=== PATIENT | male | born 1980 | race Caucasian/White ===

== ENCOUNTER 2024-06-13 10:19 | Outpatient (AMB) | payer OTHER, SELFPAY ==
--- NOTE | 2024-06-13 10:24 | A.OFFPC_ITS ---
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 // Est Care Intake Note: patient here for new patient visit Digital Media Coordinator Required: No Allergies No Known Allergies Allergy (Verified 06/13/24 10:27) Tobacco use date assessed: 06/13/24 Dental Screening Dental Screen Date: 06/13/24 Did you have a dental visit in the last 12 months?: Yes Did you have a dental problem in the last 6 months where you did not have access to dental care?: No Was dental information given to patient?: Patient has dentist HPI HPI Comments History of Present Illness Details This is a 43-year-old male with a past medical history of elevated blood pressure, anxiety, gout, impaired fasting glucose, OCD and diarrhea presenting for follow up. He transferred from my practice at [facility]. OCD, anxiety-stable. He takes Xanax 0.5 mg daily occasionally for symptoms. He needs a refill. The patient requests a letter to continue working from home. He has worked from home since the pandemic. 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 They have been talking about bring a people back into the office. He has a history of diarrhea for the past 15 years. It has been more frequent over the past 4 years. It is coupled with having hemorrhoids which may hygiene more difficult. When he has to go somewhere he will take an Imodium and use hemorrhoid cream which helps. He also had an anorectal fistula. He thinks this might contribute to it. 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 He denies blood in his stools or unexplained weight loss. He has no family history of colon cancer. He will be due for an initial screening colonoscopy this month since he is turning 44. He is agreeable to this. He strongly suspects he may have IBS with diarrhea. Symptoms occur regardless of what he eats. It is not associated with abdominal pain, nausea or vomiting. He is open to a GI consult. He has a history of office hypertension. He monitors his blood pressure at home, and it is less than 130/80. ROS: Constitutional: No unexplained weight loss, fever, chills, fatigue or night sweats. Eyes: No vision changes, blurry vision Respiratory: No shortness of breath Cardiovascular: No chest pain Gastrointestinal: No anorexia, nausea, vomiting or GERD. No abdominal pain or blood in stool. Neurologic: No headache, dizziness, syncope Psychiatric: No SI/HI. Physical exam: Constitutional: Alert, in no distress. Respiratory: Clear to auscultation. Cardiovascular: S1 S2 regular. No murmurs. Gastrointestinal: Abdomen soft, non-tender, non-distended. Normal bowel sounds. No palpable masses. Extremities: Warm and well perfused. No clubbing, cyanosis or edema Psychiatric: Normal mood and affect [facility] Medical History (Updated 06/13/24 @ 13:36 by HETAL Juan) Elevated blood pressure reading in office without diagnosis of hypertension Anorectal fistula Diarrhea OCD (obsessive compulsive disorder) IFG (impaired fasting glucose) Glaucoma Gout Anxiety Irritable bowel syndrome Sinusitis Family History (Updated 06/13/24 @ 10:40 by Tamie Faust) Sister FH: mental illness Father High blood pressure Diabetes Paternal Grandmother High blood pressure Diabetes Paternal Grandfather High blood pressure Social History Housing: House Patient Tobacco Use Status: Never used Tobacco e-Cigarette/Vaping Use: Never Used Second Hand Smoke Exposure: No service: No Current occupational status: employed 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 1. Little interest or pleasure in doing things: not at all 2. Feeling down, depressed, or hopeless: not at all 3. Trouble falling or staying asleep, or sleeping too much: several days 4. Feeling tired or having little energy: not at all 5. Poor appetite or overeating: not at all 6. Feeling bad about yourself - or that you are a failure or have let yourself or your family down: not at all 7. Trouble concentrating on things, such as reading the newspaper or watching television: not at all 8. Moving or speaking so slowly that other people could have noticed. Or the opposite - being so fidgety or restless that you have been moving around a lot more than usual: not at all 9. Thoughts that you would be better off or of hurting yourself in some way: not at all Total score: 1 Depression Screening Interpretation: Negative Depression Screening Done: Yes 12177 - PHQ-9 Billing: Yes Source: Developed by Drs. Duy Gardiner, Tatum Murillo, David Montgomery and colleagues, with an educational juju from [employer]. Thrive Questionnaire Date Thrive assessed: 06/13/24 I am a: Patient What is your living situation today?: I have a steady place to live Within the past 12 months, did the food you bought not last and you didn't have the money to get more?: Never true Within the past 12 months, did you worry whether your food would run out before you got money to buy more?: Never true Do you have trouble paying for medicines?: No Do you have trouble getting transportation to medical appointments?: No Do you have trouble paying your heating and electricity bill?: No Do you have trouble taking care of your child, family member or friend?: No Do you have trouble with day-to-day activities such as bathing, preparing meals, shopping, managing finances, etc.?: No Are you currently unemployed and looking for a job?: No Are you interested in more education?: No Please select the resources that you would like help with: None Currently or been in a relationship where the following occur: No concerns reported THRIVE Score: 0 AUDIT C Alcohol Use Questionnaire (AUDIT-C) 1. How often do you have a drink containing alcohol?: 4 or more times a week 2. How many drinks containing alcohol do you have on a typical day when you are drinking?: 5 or 6 3. How often do you have six or more drinks on one occasion?: Weekly Total Score: 9 Score Reviewed/Action Taken: Yes TANIKA-7 AMB Questionnaire TANIKA-7 Date TANIKA - 7 assessed: 06/13/24 Feeling nervous, anxious, or on edge: 0 = Not at all Not being able to stop or control worryin = Not at all Worrying too much about different things: 0 = Not at all Trouble relaxin = Several days Being so restless that it is hard to sit still: 0 = Not at all Becoming easily annoyed or irritable: 1 = Several days Feeling afraid as if something awful might happen: 0 = Not at all Total TANIKA-7 score (0-4 normal; 5-9 mild; 10-14 moderate; 15-21 severe): 2 Source: Developed by Drs. Duy Gardiner, Tatum Murillo, David Montgomery and colleagues, with an educational juju from [employer]. TANIKA-7 Assessment Billing TANIKA-7 Assessment Tool: TANIKA-7 Assessment 39214 Physical exam (Primary Care) Vital Signs: Last Vital Signs Temp 98.0 F 06/13/24 10:30 Pulse 67 06/13/24 10:30 Resp 16 06/13/24 10:30 BP 150/94 H 06/13/24 11:10 Pulse Ox 99 06/13/24 10:30 Oxygen Delivery Method Room Air 06/13/24 10:30 BMI result Body Mass Index 25.7 Tobacco/Smoking Status: Tobacco use Status Tobacco use date assessed 06/13/24 06/13/24 10:29 Patient Tobacco Use Status Never used Tobacco 06/13/24 10:29 e-Cigarette/Vaping Use Never Used 06/13/24 10:29 PHQ-9: PHQ-9 Score PHQ-9: Total score 1 06/13/24 11:05 Depression Screening Interpretation: Negative Thrive Assessment: Date of Thrive Assessment Date Thrive assessed 06/13/24 06/13/24 10:41 Currently or been in a relationship where the following occur: No concerns reported Assessment and Plan Assessment & Plan (1) Diarrhea: Code(s): R19.7 - Diarrhea, unspecified Qualifiers: Diarrhea type: functional diarrhea Qualified Code(s): K59.1 - Functional diarrhea (2) Anxiety: Code(s): F41.9 - Anxiety disorder, unspecified (3) IFG (impaired fasting glucose): Code(s): R73.01 - Impaired fasting glucose (4) Elevated blood pressure reading in office without diagnosis of hypertension: Code(s): R03.0 - Elevated blood-pressure reading, without diagnosis of hypertension Plan The patient will have fasting lab work completed in August when he is due. He is due for a physical in 02/16/2025. 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 We discussed his symptoms. He may have IBS with diarrhea. He is managing with Imodium as needed. Dietary changes reviewed. Agreeable to GI consult. He will also be due for his initial screening colonoscopy. Refilled Xanax that he takes sparingly as needed for anxiety. Patient reminded not to take this if he drives or works or operate heavy machinery. He can not drink alcohol if he uses this medication. The patient will continue to monitor his blood pressure at home and contact the office if readings are greater than 130/80. Follow up for physical exam in 02/16/2025. Orders: Orders Comprehensive Met. Panel Today F41.9 - Anxiety disorder, unspecified, M10.9 - Gout, unspecified, R73.01 - Impaired fasting glucose, Z13.6 - Encounter for s creening for cardiovascular disorders Lipid Panel Today F41.9 - Anxiety disorder, unspecified, M10.9 - Gout, unspecified, R73.01 - Impaired fasting glucose, Z13.6 - Encounter for screening for cardiovascular disorders Hemoglobin A1c Today F41.9 - Anxiety disorder, unspecified, M10.9 - Gout, unspecified, R73.01 - Impaired fasting glucose, Z13.6 - Encounter for screening for cardiovascular disorders Prostate Specific Antigen Scr Today F41.9 - Anxiety disorder, unspecified, M10.9 - Gout, unspecified, R73.01 - Impaired fasting glucose, Z12.5 - Encounter for screening for malignant neoplasm of prostate, Z13.6 - Encounter for screening for cardiovascular disorders Complete Blood Count no Diff Today F41.9 - Anxiety disorder, unspecified, M10.9 - Gout, unspecified, R73.01 - Impaired fasting glucose, Z13.6 - Encounter for screening for cardiovascular disorders Referrals Gastroenterology Referral R19.7 - Diarrhea, unspecified, Z12.11 - Encounter for screening for malignant neoplasm of colon, Z12.12 - Encounter for screening for malignant neoplasm of rectum Medications: New alprazolam (Xanax) 0.5 mg PO DAILY PRN 30 tabs 0RF anxiety Coding Level of Care Code Est Pt Level 4 (49397) Complex EM visit Add On G2211 Diagnoses Functional diarrhea K59.1 Diarrhea type: functional diarrhea Anxiety F41.9 IFG (impaired fasting glucose) R73.01 Elevated blood pressure reading in office without diagnosis of hypertension R03.0 Additional Codes TANIKA-7 Assessment Billing - TANIKA-7 Assessment Tool: TANIKA-7 Assessment 97191 ([id number])
[2024-06-13 10:30] VITALS: BP 162/100; PULSE 67; RESP 16; TEMP 36.7; O2SAT 99; BMI 25.7
[2024-06-13 10:35] VITALS: BP 164/100
[2024-06-13 11:10] VITALS: BP 150/94
== END 2024-06-13 11:17 | disposition home or self-care (01) ==
PROVIDERS: Visit Provider Physician Assistant Medical
DX: K59.1 Functional diarrhea (principal); F41.9 Anxiety disorder, unspecified; R73.01 Impaired fasting glucose; R03.0 Elevated blood-pressure reading, without diagnosis of hypertension
CPT/HCPCS: 99214

== ENCOUNTER 2024-10-16 11:08 | Outpatient (AMB) | payer OTHER, SELFPAY ==
[2024-10-16 11:10] VITALS: BP 156/98; PULSE 90; O2SAT 99; BMI 26.3
--- NOTE | 2024-10-16 11:10 | MHC.OFFVIS ---
Vital Signs 10/16/24 11:10 Height 5 ft 11 in Weight 188 lb 4.396 oz BMI 26.3 BP 156/98 H Blood Pressure Location Lt brachial Position Sitting Pulse 90 Pulse Source Pulse Oximeter Pulse Oximetry (%) 99 Oxygen Delivery Method Room Air Intake Visit Reasons: Diarrhea, Jeddo Screening Intake Note: NEW PATIENT Larry presents in office today for a scheduled colo scrn Prior hx of colo/egd? Initial / Routine Meds and Allergies reviewed? Y Any significant concerns or questions? Diarrhea, abd cramping. Pt also feels that he has difficulty with slight incontinence and difficulty with staying clean after wiping. Pharmacy verified? [facility] Important FMHx? N Security Delivery Specialist Required: No Allergies No Known Allergies Allergy (Verified 10/16/24 11:10) HPI HPI Diarrhea, Jeddo Screening: Details: 44 year old? male here today for pre colonoscopy screening.? Patient was sent to us by his PCP.? This is his first colonoscopy screening.? Patient reports postprandial loose stool, symptoms chronic since high school. Currently patient reports that the symptoms are getting worse.? Denies any personal or family history of gastrointestinal disease, colon polyps, or CRC.? Denies history of difficulty with sedation or anesthesia in the past.? Negative for history of sleep apnea.? Denies any history of cardiac, renal, pulmonary, or hepatic disease.?? No history of infectious? diseases like hepatitis A, B, C, HIV or tuberculosis.? Patient is not on any anticoagulation [facility] Medical History Elevated blood pressure reading in office without diagnosis of hypertension Anorectal fistula Diarrhea OCD (obsessive compulsive disorder) IFG (impaired fasting glucose) Glaucoma Gout Anxiety Irritable bowel syndrome Sinusitis Family History Sister FH: mental illness Father High blood pressure Diabetes Paternal Grandmother High blood pressure Diabetes Paternal Grandfather High blood pressure Social History Housing: House Patient Tobacco Use Status: Never used Tobacco e-Cigarette/Vaping Use: Never Used Second Hand Smoke Exposure: No service: No Current occupational status: employed 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 Current occupational exposures/hazards: No Cognitive needs: No Hearing needs: No Vision needs: No Review of Systems Const Denies weight gain and Denies weight loss ENT Reports no additional complaints, Denies dysphagia and Denies odynophagia Card Reports no additional complaints Resp Reports no additional complaints GI Denies abdominal pain, Denies belching, Denies melena, Denies bloating, Denies change in bowel habits, Denies dysphagia, Denies excessive flatus, Denies dyspepsia, Denies heartburn, Denies diarrhea, Reports loose stools, Denies nausea, Denies odynophagia and Denies vomiting Reports no additional complaints Musc Reports no additional complaints Neuro Reports no additional complaints Psych Reports no additional complaints Endo Reports no additional complaints Physical Exam Vital Signs: Last Vital Signs Pulse 90 10/16/24 11:10 BP 156/98 H 10/16/24 11:10 Pulse Ox 99 10/16/24 11:10 Oxygen Delivery Method Room Air 10/16/24 11:10 BMI result Body Mass Index 26.3 Const General: healthy appearing, no acute distress and well developed Nutritional Appearance: well nourished Orientation/consciousness: patient oriented x3 Resp Effort & Inspection: normal respiratory effort, able to speak in complete sentences, no tracheal deviation and symmetric chest movement Auscultation: clear to auscultation bilaterally Cardio Rate: regular rate GI Inspection: Yes normal to inspection and No distended Palpation (GI): Soft to palpation, not firm, nontender and No hepatosplenomegaly present Auscultation: normal bowel sounds General: Yes no CVA tenderness Back/Spine/Pelvis Back: no CVA tenderness Skin General skin exam: elasticity normal, turgor normal and dry skin Neuro General: patient oriented x3 Psych Appearance: grossly normal Mental Status: mental status grossly normal Assessment & Plan Assessment & Plan (1) Diarrhea: Code(s): R19.7 - Diarrhea, unspecified Category: Medical Qualifiers: Diarrhea type: functional diarrhea Qualified Code(s): K59.1 - Functional diarrhea (2) Screen for colon cancer: Code(s): Z12.11 - Encounter for screening for malignant neoplasm of colon Plan Patient denies any cardiac or respiratory symptoms. Patient reports postprandial diarrhea since high school. Patient reports this is getting worse lately. Will send him to check for IBD. Labs: CRP, fecal calprotectin, vitamin-D, B12, folate. Patient was encouraged to take fiber supplement with probiotics.? Denies any issues with anesthesia in the past.? Denies any history of sleep apnea.? No history infectious diseases in the past or present.? Not on any anticoagulation therapy.? No family or personal history of colon cancer or polyps.? Patient denies melena, hematochezia, unintentional weight loss or ribbon like stools.? Discussed at length the pre-procedure,? prep, diet & medications as well as what to expect prior, during and after the procedure.?? Stressed the importance of good bowel prep.? Recommended the use of Vaseline or Calmoseptine OTC & baby wipes with bowel movements to promote comfort.? ?Patient verbalizes understanding and agrees to plan of care.? He was given the opportunity to ask questions and all questions answered.? We will see him after the procedure.? Orders: Orders Vitamin B12 and Folate Today R19.7 - Diarrhea, unspecified Vitamin D 25-OH (D2 and D3) Today E55.9 - Vitamin D deficiency, unspecified C Reactive Protein Today K58.9 - Irritable bowel syndrome, unspecified Calprotectin, Fecal Today R15.9 - Full incontinence of feces Medications: New polyethylene glycol 3350 (Miralax) As directed by gastroenterology department at [facility] 238 grams PO ONCE 238 grams 0RF Z12.11 - Encounter for screening for malignant neoplasm of colon bisacodyl (Dulcolax (bisacodyl)) take 4 tabs at noon the day before your colonoscopy 20 mg (4 x 5 mg) PO ONCE 1 day 4 tabs 0RF Z12.11 - Encounter for screening for malignant neoplasm of colon Coding Level of Care Code New Pt Level 3 (65806) Diagnoses Functional diarrhea K59.1 Diarrhea type: functional diarrhea Screen for colon cancer Z12.11 Time Spent (min) 40 Comment 30 minutes spent with patient and additional 10 minutes spent reviewing his records
== END 2024-10-16 12:11 | disposition home or self-care (01) ==
PROVIDERS: Visit Provider Nurse Practitioner Family
DX: Z01.818 Encounter for other preprocedural examination (principal); Z12.11 Encounter for screening for malignant neoplasm of colon; K59.1 Functional diarrhea
CPT/HCPCS: S0285

== ENCOUNTER → 2024-10-16 11:08 | Outpatient (BNVA) | payer OTHER, SELFPAY | PROVIDERS: Visit Provider Nurse Practitioner Family ==

== ENCOUNTER 2025-01-07 11:14 | Outpatient (REF) | payer OTHER, SELFPAY ==
[2025-01-07 14:16] LABS: Hematocrit 42.5 % (42.0-52.0); Hemoglobin 14.4 g/dl (14.0-18.0); Mean Corpuscular HGB Conc 33.9 g/dl (31.0-36.0); Mean Corpuscular Hemoglobin 30.1 pg (27.0-33.0); Mean Corpuscular Volume 88.9 fL (80.0-98.0); Platelet Count 253 X10*3/uL (160-400); Red Blood Count 4.78 X10*6/uL (4.60-5.80); Red Cell Distribution Width 12.4 % (11.0-16.0); White Blood Count 5.7 X10*3/uL (4.8-10.8)
[2025-01-07 14:50] LABS: Alanine Aminotransferase 40 U/L (0-40); Albumin Level 4.4 g/dL (3.5-5.0); Alkaline Phosphatase 53 U/L (39-117); Anion Gap 9 (12-20); Aspartate Amino Transferase 40 U/L (5-37); Bilirubin Total 1.1 mg/dL (0.0-1.0); Blood Urea Nitrogen 19 mg/dL (9-16); C Reactive Protein < 0.10 mg/dL (< or = 0.50); Calcium 8.9 mg/dL (8.4-10.2); Carbon Dioxide 27 mmol/L (22-29); Chloride 108 mmol/L (96-108); Cholesterol 169 mg/dL (<200); Estimated Glomerular Filt Rate > 60; Glucose Random 98 mg/dL (60-115); HDL Cholesterol 56 mg/dL (>40); LDL Cholesterol Calculated 101 mg/dL (<100); Potassium 4.4 mmol/L (3.3-5.1); Sodium 140 mmol/L (135-145); Total Protein 7.6 g/dL (6.5-8.0); Triglycerides 61 mg/dL (<150)
[2025-01-07 14:51] LABS: Estimated Average Glucose 105 mg/dL; Hemoglobin A1c % 5.3 % (<6.0)
[2025-01-07 15:13] LABS: Folate 12.9 ng/mL (> or = 4.0); Prostate Specific Antigen Scr 0.56 ng/mL (<0.05-4.0); Vitamin B12 338 pg/mL (200-900)
[2025-01-12 17:23] LABS: Vitamin D 25-OH, D2 <4 ng/mL; Vitamin D 25-OH, D3 5 ng/mL; Vitamin D 25-OH, Total 5 ng/mL (30-100)
== END 2025-01-07 11:15 | disposition home or self-care (01) ==
LOC: HO.WFDLDS 11:14
PROVIDERS: Referring Provider Nurse Practitioner Family; Visit Provider Physician Assistant Medical
DX: K58.9 Irritable bowel syndrome, unspecified (principal); Z13.6 Encounter for screening for cardiovascular disorders; R73.01 Impaired fasting glucose; M10.9 Gout, unspecified; F41.9 Anxiety disorder, unspecified; Z12.5 Encounter for screening for malignant neoplasm of prostate; R19.7 Diarrhea, unspecified; E55.9 Vitamin D deficiency, unspecified
CPT/HCPCS: 36415; 80053; 80061; 82306; 82607; 82746; 83036; 84153; 85027; 86140

== ENCOUNTER 2025-01-16 14:39 | Outpatient (REF) | payer OTHER, SELFPAY ==
[2025-01-22 18:48] LABS: Calprotectin, Fecal 12 mcg/g
== END 2025-01-16 14:40 | disposition home or self-care (01) ==
LOC: HO.LNP 14:39
PROVIDERS: Visit Provider Nurse Practitioner Family
DX: R15.9 Full incontinence of feces (principal)
CPT/HCPCS: 83993

== ENCOUNTER 2025-02-20 08:24 | Outpatient (AMB) | payer OTHER, SELFPAY ==
--- NOTE | 2025-02-20 08:28 | MHC.PC.OV ---
Vital Signs 02/20/25 08:34 Height 5 ft 11 in Weight 187 lb 6 oz BMI 26.1 BP 148/88 H Blood Pressure Location Rt brachial Position Sitting Respiration 14 Pulse 71 Pulse Source Pulse Oximeter Temp 97.5 F Temp Source Temporal Artery Scan Pulse Oximetry (%) 98 Oxygen Delivery Method Room Air Intake Visit Reasons: annual physical Intake Note: Larry presents in the office today for his annual physical. Allergies Seasonal Allergies Allergy (Verified 02/20/25 08:31) Sneezing Medication List - Last Reconciled 02/21/25 by HETAL Juan alprazolam (Xanax) 0.5 mg PO DAILY PRN ascorbate calcium (vitamin C) 500 mg PO DAILY bisacodyl (Dulcolax (bisacodyl)) 20 mg (4 x 5 mg) PO ONCE 1 day cholecalciferol (vitamin D3) 1,250 mcg PO QWEEK latanoprost 0.005% drps ophthalmic (eye) loperamide (Imodium A-D) 2 mg PO Q6H PRN loratadine-pseudoephedrine 5-120 mg ER (Allergy Relief D12) 1 tab PO Q12H PRN polyethylene glycol 3350 (Miralax) 238 grams PO ONCE timolol maleate 0.5% drps ophthalmic (eye) Tobacco use date assessed: 02/20/25 Dental Screening Dental Screen Date: 02/20/25 Did you have a dental visit in the last 12 months?: Yes Did you have a dental problem in the last 6 months where you did not have access to dental care?: No Was dental information given to patient?: Patient has dentist HPI HPI Comments History of Present Illness Details This is a 44-year-old male with a past medical history of elevated blood pressure, anxiety, gout, impaired fasting glucose, OCD and diarrhea presenting for a physical exam. Requests MMR titer due to the current measles outbreak. OCD, anxiety-stable. He takes Xanax 0.5 mg daily occasionally for symptoms. Refill provided. I provided him with a new copy of the letter to continue working from home. 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 He has a history of chronic diarrhea coupled with hemorrhoids which makes hygiene more difficult. He uses Imodium as needed and hemorrhoidal cream. He also has a history of anorectal fistula. He denies blood in his stools or weight loss. He had his consult for a colonoscopy which is going to be scheduled. He has a history of office hypertension. He monitors his blood pressure at home, and it is less than 130/80. The patient saw urology last year for evaluation of a scrotal cyst, and they said it was benign, and they did not recommend surgical intervention unless it bothers him. Last tetanus vaccination was in 2016. He is treated for vitamin-D deficiency currently. His lab work also showed his AST was elevated at 40. He drinks 4-5 scotches 4-5 days per week. He does not feel this is excessive. He does not get withdrawal symptoms when he does not drink. Patient has excessive wax in the left ear canal. States that it does feel a little blocked. Denies pain. Recommended irrigation, but he would like to try Debrox OTC and return if this doesn't help. ROS: Constitutional: No unexplained weight loss, fever, chills, fatigue or night sweats. Eyes: No vision changes, blurry vision, double vision, eye pain, eye redness, eye discharge. ENT: No hearing loss, sneezing, congestion, runny nose or sore throat. Respiratory: No shortness of breath, cough or sputum production. Cardiovascular: No chest pain, chest pressure or chest discomfort. No palpitations or pedal edema. Gastrointestinal: No anorexia, nausea, vomiting or diarrhea. No abdominal pain or blood in stool. Genitourinary: No dysuria, hematuria, urinary frequency. No urethral discharge or genitourinary pain. Neurologic: No headache, dizziness, syncope, unilateral weakness, ataxia, numbness or tingling in the extremities. Musculoskeletal: No muscle pain, back pain, joint pain or swelling. Hematologic/Lymphatics: No bleeding or bruising. No painful lymph nodes. Skin: No rash or itching. Endocrine: No cold or heat intolerance. No polyuria or polydipsia. Psychiatric: No depression.. No SI/HI. Physical exam: Constitutional: Alert, in no distress. Head: Normocephalic. Eyes: Pupils are equal, round and reactive to light. Extraocular muscles intact. Ear, Nose and Throat: Excessive wax in left canal. Right canal with small amount of cerumen.. TMs normal. Normal nasal mucosa. No nasal discharge. No oral lesions. Neck: Supple, Full range of motion. No lymphadenopathy. No palpable thyroid masses. Respiratory: Clear to auscultation. Cardiovascular: S1 S2 regular. No murmurs. Gastrointestinal: Abdomen soft, non-tender, non-distended. Normal bowel sounds. No palpable masses. Genitourinary: Deferred-seen by Urology. Neurologic: No focal neurological deficits. Symmetric patellar reflexes. Moves all extremities spontaneously. Sensation intact bilaterally. Skin: No rashes. Musculoskeletal: No gross deformities. Normal range of motion. Extremities: Warm and well perfused. No clubbing, cyanosis or edema. Intact peripheral pulses. Psychiatric: Normal mood and affect [facility] Medical History (Updated 02/21/25 @ 08:26 by HETAL Juan) Routine physical examination Alcohol use Vitamin D deficiency LFT elevation Elevated blood pressure reading in office without diagnosis of hypertension Anorectal fistula Diarrhea OCD (obsessive compulsive disorder) IFG (impaired fasting glucose) Glaucoma Gout Anxiety Irritable bowel syndrome Sinusitis Family History Sister FH: mental illness Father High blood pressure Diabetes Paternal Grandmother High blood pressure Diabetes Paternal Grandfather High blood pressure Social History (Updated 02/20/25 @ 08:33 by Miranda Sandhu MA) Housing: House Alcohol intake: current Patient Tobacco Use Status: Never used Tobacco e-Cigarette/Vaping Use: Never Used Second Hand Smoke Exposure: No service: No Current occupational status: employed 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 1. Little interest or pleasure in doing things: not at all 2. Feeling down, depressed, or hopeless: not at all 3. Trouble falling or staying asleep, or sleeping too much: several days 4. Feeling tired or having little energy: several days 5. Poor appetite or overeating: not at all 6. Feeling bad about yourself - or that you are a failure or have let yourself or your family down: not at all 7. Trouble concentrating on things, such as reading the newspaper or watching television: not at all 8. Moving or speaking so slowly that other people could have noticed. Or the opposite - being so fidgety or restless that you have been moving around a lot more than usual: not at all 9. Thoughts that you would be better off or of hurting yourself in some way: not at all Total score: 2 Depression Screening Interpretation: Negative Depression Screening Done: Yes 36431 - PHQ-9 Billing: Patient declined-do not bill Source: Developed by Drs. Duy Gardiner, Tatum Murillo, David Montgomery and colleagues, with an educational juju from [employer]. Thrive Questionnaire Date Thrive assessed: 02/20/25 I am a: Patient What is your living situation today?: I have a steady place to live Within the past 12 months, did the food you bought not last and you didn't have the money to get more?: Never true Within the past 12 months, did you worry whether your food would run out before you got money to buy more?: Never true Do you have trouble paying for medicines?: No Do you have trouble getting transportation to medical appointments?: No Do you have trouble paying your heating and electricity bill?: No Do you have trouble taking care of your child, family member or friend?: No Do you have trouble with day-to-day activities such as bathing, preparing meals, shopping, managing finances, etc.?: No Are you currently unemployed and looking for a job?: No Are you interested in more education?: No Please select the resources that you would like help with: None Currently or been in a relationship where the following occur: No concerns reported THRIVE Score: 0 AUDIT C Alcohol Use Questionnaire (AUDIT-C) 1. How often do you have a drink containing alcohol?: 4 or more times a week 2. How many drinks containing alcohol do you have on a typical day when you are drinking?: 5 or 6 3. How often do you have six or more drinks on one occasion?: Less than monthly Total Score: 7 Score Reviewed/Action Taken: Yes TANIKA-7 AMB Questionnaire TANIKA-7 Date TANIKA - 7 assessed: 02/20/25 Feeling nervous, anxious, or on edge: 1 = Several days Not being able to stop or control worryin = Not at all Worrying too much about different things: 1 = Several days Trouble relaxin = Several days Being so restless that it is hard to sit still: 0 = Not at all Becoming easily annoyed or irritable: 1 = Several days Feeling afraid as if something awful might happen: 1 = Several days Total TANIKA-7 score (0-4 normal; 5-9 mild; 10-14 moderate; 15-21 severe): 5 Source: Developed by Drs. Duy Gardiner, Tatum Murillo, David Montgomery and colleagues, with an educational juju from [employer]. TANIKA-7 Assessment Billing TANIKA-7 Assessment Tool: TANIKA-7 Assessment 03948 ACT Questionnaire In the past 4 weeks, how much of the time did your asthma keep you from getting as much done at work, school or at home?: None of the time Score: 5 Physical exam (Primary Care) Vital Signs: Last Vital Signs Temp 97.5 F 02/20/25 08:34 Pulse 71 02/20/25 08:34 Resp 14 02/20/25 08:34 BP 148/88 H 02/20/25 08:34 Pulse Ox 98 02/20/25 08:34 Oxygen Delivery Method Room Air 02/20/25 08:34 BMI result Body Mass Index 26.1 Tobacco/Smoking Status: Tobacco use Status Tobacco use date assessed 02/20/25 02/20/25 08:39 Patient Tobacco Use Status Never used Tobacco 02/20/25 08:39 e-Cigarette/Vaping Use Never Used 02/20/25 08:39 PHQ-9: PHQ-9 Score PHQ-9: Total score 2 02/21/25 08:20 Depression Screening Interpretation: Negative Thrive Assessment: Date of Thrive Assessment Date Thrive assessed 02/20/25 02/20/25 08:39 Currently or been in a relationship where the following occur: No concerns reported Coding Level of Care Code Est Pt Prev Care 40-64y(51278) Diagnoses Routine physical examination Z00.00 Alcohol use F10.90 Vitamin D deficiency E55.9 LFT elevation R79.89 Elevated blood pressure reading in office without diagnosis of hypertension R03.0 Functional diarrhea K59.1 Diarrhea type: functional diarrhea Anxiety F41.9 IFG (impaired fasting glucose) R73.01 Additional Codes TANIKA-7 Assessment Billing - TANIKA-7 Assessment Tool: TNAIKA-7 Assessment 41210 ([id number]) Assessment & Plan Assessment & Plan (1) Routine physical examination: Code(s): Z00.00 - Encounter for general adult medical examination without abnormal findings Category: Medical Plan: Patient is seen today for a routine physical. As part of this visit we reviewed the following issues, which are considered and essential part of preventative health in this age group: - Screening for colon cancer - Cholesterol screening - Nutritional and exercise counseling - Counseling of injury prevention including fire prevention, smoke alarms and seat belt usage - Screening for depression - Education about skin cancer - Recommendations about immunizations - Recommendation of an eye exam - Screening for substance abuse (2) Alcohol use: Code(s): F10.90 - Alcohol use, unspecified, uncomplicated Category: Social Hx Plan: Advised patient that alcohol use excessive. He does not agree, but he does understand that his liver function was elevated and this is likely the reason for it. I recommend he decrease alcohol consumption. We also discussed getting a liver ultrasound with elastography for evaluation, but he declines unless liver function tests remains elevated. (3) Vitamin D deficiency: Code(s): E55.9 - Vitamin D deficiency, unspecified Category: Medical Plan: Continue supplementation. Order is placed for rechecked. (4) LFT elevation: Code(s): R79.89 - Other specified abnormal findings of blood chemistry Category: Medical Plan: See above. Repeat liver function tests as planned. (5) Elevated blood pressure reading in office without diagnosis of hypertension: Code(s): R03.0 - Elevated blood-pressure reading, without diagnosis of hypertension Category: Medical Plan: Home readings within normal. Continue to monitor and call if blood pressure at home is greater than 130/80. (6) Diarrhea: Code(s): R19.7 - Diarrhea, unspecified Category: Medical Qualifiers: Diarrhea type: functional diarrhea Qualified Code(s): K59.1 - Functional diarrhea Plan: Patient followed by Gastroenterology, and colonoscopy is pending. Patient recently cut night she eats out of his diet, and he says that this has helped significantly. (7) Anxiety: Code(s): F41.9 - Anxiety disorder, unspecified Category: Medical Plan: Continue alprazolam 0.5 mg daily as needed. He uses this infrequently. Advised not to drive, operate heavy machinery or take this medication if he has alcohol. (8) IFG (impaired fasting glucose): Code(s): R73.01 - Impaired fasting glucose Category: Medical Plan: Hemoglobin A1c normal. Monitor. Low carb, low sugar diet recommended. Plan Follow up in 1 year for a physical exam. Orders: Orders MMR IgG Measles Mumps Rubella 02/20/25 Z01.84 - Encounter for antibody response examination Medications: Refilled alprazolam (Xanax) 0.5 mg PO DAILY PRN 30 tabs 0RF anxiety
[2025-02-20 08:34] VITALS: BP 148/88; PULSE 71; RESP 14; TEMP 36.4; O2SAT 98; BMI 26.1
== END 2025-02-20 09:07 | disposition home or self-care (01) ==
LOC: HO.HMCFM 08:25
PROVIDERS: Visit Provider Physician Assistant Medical
DX: Z00.00 Encounter for general adult medical examination without abnormal findings (principal); F10.90 Alcohol use, unspecified, uncomplicated; E55.9 Vitamin D deficiency, unspecified; R79.89 Other specified abnormal findings of blood chemistry; R03.0 Elevated blood-pressure reading, without diagnosis of hypertension; K59.1 Functional diarrhea; F41.9 Anxiety disorder, unspecified; R73.01 Impaired fasting glucose

== ENCOUNTER → 2025-02-20 08:24 | Outpatient (BNVA) | payer OTHER, SELFPAY | PROVIDERS: Visit Provider Physician Assistant Medical | DX: Z00.00 Encounter for general adult medical examination without abnormal findings (principal); F10.90 Alcohol use, unspecified, uncomplicated; E55.9 Vitamin D deficiency, unspecified; R79.89 Other specified abnormal findings of blood chemistry; R03.0 Elevated blood-pressure reading, without diagnosis of hypertension; K59.1 Functional diarrhea; F41.9 Anxiety disorder, unspecified; R73.01 Impaired fasting glucose; Z79.899 Other long term (current) drug therapy | CPT/HCPCS: 96127 ==

== ENCOUNTER 2025-04-23 08:22 | Outpatient (REF) | payer OTHER, SELFPAY ==
[2025-04-23 11:41] LABS: Alanine Aminotransferase 33 U/L (0-40); Aspartate Amino Transferase 36 U/L (5-37)
[2025-04-28 14:33] LABS: Vitamin D 25-OH, D2 <4 ng/mL; Vitamin D 25-OH, D3 52 ng/mL; Vitamin D 25-OH, Total 52 ng/mL (30-100)
== END 2025-04-23 08:23 | disposition home or self-care (01) ==
LOC: HO.WFDLDS 08:22
PROVIDERS: Visit Provider Physician Assistant Medical
DX: R79.89 Other specified abnormal findings of blood chemistry (principal); E55.9 Vitamin D deficiency, unspecified; Z01.84 Encounter for antibody response examination
CPT/HCPCS: 36415; 82306; 84450; 84460; 86735; 86762; 86765